=== PATIENT | female | born 1970 | race Caucasian/White ===

== ENCOUNTER 2019-11-27 10:24 | Emergency (ER) | payer OTHER ==
[~2019-11-27] VITALS: Ht 167.6 cm; Wt 77.1 kg
[2019-11-27 10:44] VITALS: BP_SYST 117
[2019-11-27] MEDS ORDERED: FERR-69 PO (10:44)
--- NOTE | 2019-11-27 10:45 | NUR ---
PATIENT TO ER #5, URINE HCG -
--- NOTE | 2019-11-27 10:50 | NUR ---
Patient arrived in the ED c/o heavy vaginal bleeding and back pain that started today. Denied any chest pain or shortness of breath. Denied any fevers, nausea, vomiting, or chills. Patient is alert and oriented x4, respirations even and unlabored, speaking in full sentences, ambulating with a steady gait. VSS, pain level 6/10. Informed of wait time. Instructed to notify ED staff for any changes in condition or worsening of symptoms. Patient verbalized understanding.
--- NOTE | 2019-11-27 11:05 | NUR ---
ER Dr. Feliz at bedside examining patient.
--- NOTE | 2019-11-27 11:18 | NUR ---
technical delivery manager at bedside collecting blood specimen as ordered by Dr. Feliz. Patient tolerated the procedure well.
[2019-11-27 12:07] LABS: BASOPHILS # (AUTO) 0.1 K/uL (0.0-0.2); BASOPHILS % (AUTO) 0.9 % (0.0-2.0); EOSINOPHILS % (AUTO) 0.8 % (0.0-4.0); HEMATOCRIT 30.1 % (36-48); HEMOGLOBIN 9.8 g/dL (12.0-16.0); LYMPHOCYTES # (AUTO) 1.3 K/uL (1.0-5.5); MEAN CORPUSCULAR HEMOGLOBIN 26 pg (27-31); MEAN CORPUSCULAR HGB CONC 32 % (32-36); MEAN CORPUSCULAR VOLUME 81 fL (79.0-98.0); MONOCYTES # (AUTO) 0.5 K/uL (0.0-1.0); MONOCYTES % (AUTO) 8.2 % (1.7-9.3); NEUTROPHILS # (AUTO) 3.8 K/uL (1.8-7.7); NEUTROPHILS % (AUTO) 67.1 % (40.0-70.0); PLATELET COUNT (AUTO) 341 K/uL (130-430); RED BLOOD CELL COUNT(AUTO) 3.74 MIL/uL (4.2-6.2); RED CELL DISTRIBUTION WIDTH 16.1 % (9.0-15.0); WHITE BLOOD COUNT (AUTO) 5.6 K/uL (4.8-10.8)
[2019-11-27 12:21] LABS: CALCIUM 8.3 mg/dL (8.4-11.0); CREATININE 0.66 mg/dL (0.55-1.30); POTASSIUM 3.9 mmol/L (3.5-5.1)
--- NOTE | 2019-11-27 12:40 | NUR ---
Chaperoned Dr. Feliz for a pelvic exam.
--- NOTE | 2019-11-27 13:15 | NUR ---
Administered Provera PO as ordered by Dr. Feliz. Patient tolerated the medication well. See eMAR for details.
--- NOTE | 2019-11-27 13:16 | NUR ---
Patient given written and verbal discharge instructions and verbalizes understanding. ER MD discussed with patient the results and treatment provided. Patient in stable condition. ID arm band removed. Rx of Provera given. Patient educated on pain management and to follow up with PMD. Pain Scale 0/10. Opportunity for questions provided and answered. Medication side effect fact sheet provided.
[2019-11-27 13:18] VITALS: BP_SYST 117
== END 2019-11-27 13:16 | disposition home or self-care (01) ==
LOC: SED 10:24
DX: N93.8 Other specified abnormal uterine and vaginal bleeding (principal)
CPT/HCPCS: 36415; 80048; 85025; 99283